=== PATIENT | female | born 1990 | race Two or more races ===

== ENCOUNTER 2019-03-23 01:26 | Emergency (ER) | payer OTHER ==
[2019-03-23] MEDS ORDERED: NS(*) 0.9% 1000 ML BAG 1,000 ML IV ONE (01:31)
--- NOTE | 2019-03-23 01:31 | ER Report ---
History and Physical Time Seen By MD: 01:31 HPI/[facility]IN[facility] CHIEF COMPLAINT: Right flank pain HISTORY OF PRESENT ILLNESS: 28-year-old female with right flank pain since yesterday at noon. She notes sudden onset tonight she presents with nausea and vomiting. She did note some urgency and dysuria. She notes no alisa blood. She denies previous abdominal surgery. She has an IUD in place and has no menstrual periods REVIEW OF SYSTEMS: Respiratory: No cough, no dyspnea. Cardiovascular: No chest pain, no palpitations. Gastrointestinal: As above Musculoskeletal: As above Allergies: Coded Allergies: No Known Drug Allergies (Unverified , 03/23/19) Home Meds Active Scripts Ondansetron Hcl (ZOFRAN) 4 Mg Tablet, 4 MG PO Q6H PRN for NAUSEA/VOMITING, #10 Prov:RAMOS ALCANTAR DO 03/23/19 Ciprofloxacin Hcl 500 Mg Tab (CIPRO 500 MG TAB) 500 Mg Tablet, 500 MG PO BID for infection, #14 Prov:RAMOS ALCANTAR DO 03/23/19 Reviewed Nurses Notes: Yes Old Medical Records Reviewed: Yes Constitutional Vital Sign - Last 24 Hours 03/23/19 03/23/19 03/23/19 03/23/19 01:37 01:41 01:56 02:00 Temp 98.5 Pulse 62 54 60 Resp 24 B/P (MAP) 94/55 Pulse Ox 98 98 97 O2 Delivery Room Air O2 Flow Rate 2.0 03/23/19 03/23/19 03/23/19 03/23/19 02:00 02:11 02:26 02:30 Pulse 50 53 B/P (MAP) 102/66 (78) 101/59 (73) Pulse Ox 97 98 03/23/19 03/23/19 03/23/19 03/23/19 02:41 02:45 03:00 03:01 Pulse 55 74 B/P (MAP) 102/62 (75) Pulse Ox 98 98 O2 Flow Rate 1.0 Intake and Output 03/22/19 03/22/19 03/23/19 15:00 23:00 07:00 Intake Total 1000 ml Balance 1000 ml Physical Exam General Appearance: The patient is alert, has no immediate need for airway protection and no current signs of toxicity. Moderate distress, slightly pale appearing, skin warm and dry, vital signs stable, afebrile, pulse ox normal Eyes: Pupils equal and round no injection. Respiratory: Chest is non tender, lungs are clear to auscultation. Cardiac: regular rate and rhythm Gastrointestinal: Abdomen is soft and non tender, no masses, bowel sounds normal. No CVA tenderness, mild suprapubic tenderness noted Musculoskeletal: Neck: Neck is supple and non tender. Extremities have full range of motion and are non tender. Skin: No rashes or lesions. DIFFERENTIAL DIAGNOSIS: After history and physical exam differential diagnosis was considered for abdominal pain including but not limited to appendicitis, cholecystitis, gastritis and urinary tract infection. Additionally,flank pain including but not limited to musculoskeletal causes, kidney stone, pyelonephritis, shingles, and intra-abdominal causes such as diverticulitis and appendicitis. Medical Decision Making Data Points Result Diagram: 03/23/19 0141 03/23/19 0141 Laboratory Hematology Test 03/23/19 01:33 03/23/19 01:41 Urine Color Yellow Urine Clarity Cloudy Urine pH 6.0 pH (4.8-9.5) Urine Specific [place] 1.016 Urine Protein 30 mg/dL (NEGATIVE) Urine Glucose (UA) Negative mg/dL (NEGATIVE) Urine Ketones Negative mg/dL (NEGATIVE) Urine Blood Moderate (NEGATIVE) Urine Nitrite Positive (NEGATIVE) Urine Bilirubin Negative (NEGATIVE) Urine Urobilinogen Negative mg/dL (0.2-1.9) Urine Leukocyte Esterase Large (NEGATIVE) Urine RBC 90 /HPF (0-2/HPF) Urine WBC 159 /HPF (0-5/HPF) Urine WBC Clumps Few /HPF Urine Squamous Epithelial Cells Many /LPF (</=FEW) Urine Transitional Epithelial Cells Many /LPF (NONE-FEW) Urine Bacteria Few /HPF (NONE-FEW) Urine Mucus Few /HPF (NONE-FEW) Urine HCG, Qualitative Negative (NEGATIVE) Red Blood Count 5.36 M/uL (4.17-5.56) Mean Corpuscular Volume 88.0 fL (80.0-96.0) Mean Corpuscular Hemoglobin 29.7 pg (26.0-33.0) Mean Corpuscular Hemoglobin Concent 33.8 g/dL (32.0-36.0) Red Cell Distribution Width 13.1 % (11.5-14.5) Mean Platelet Volume 8.1 fL (7.2-11.1) Neutrophils (%) (Auto) 83.1 % (39.4-72.5) Lymphocytes (%) (Auto) 10.9 % (17.6-49.6) Monocytes (%) (Auto) 3.6 % (4.1-12.4) Eosinophils (%) (Auto) 1.0 % (0.4-6.7) Basophils (%) (Auto) 1.4 % (0.3-1.4) Nucleated RBC Relative Count (auto) 0.0 /100WBC Neutrophils # (Auto) 16.7 K/uL (2.0-7.4) Lymphocytes # (Auto) 2.2 K/uL (1.3-3.6) Monocytes # (Auto) 0.7 K/uL (0.3-1.0) Eosinophils # (Auto) 0.2 K/uL (0.0-0.5) Basophils # (Auto) 0.3 K/uL (0.0-0.1) Nucleated RBC Absolute Count (auto) 0.01 K/uL Peripheral Blood Smear Yes Y/N Sodium Level 135 mmol/L (137-145) Potassium Level 3.5 mmol/L (3.5-5.0) Chloride Level 103 mmol/L (98-107) Carbon Dioxide Level 25 mmol/L (22-31) Blood Urea Nitrogen 12 mg/dl (7-18) Creatinine 0.80 mg/dl (0.52-1.04) Glomerular Filtration Rate Calc > 60.0 Random Glucose 110 mg/dl (75-110) Calcium Level 9.2 mg/dl (8.4-10.2) Total Bilirubin 0.7 mg/dl (0.2-1.3) Aspartate Amino Transf (AST/SGOT) 19 U/L (0-35) Alanine Aminotransferase (ALT/SGPT) 21 U/L (0-56) Alkaline Phosphatase 72 U/L (0-126) Total Protein 7.2 g/dl (6.3-8.2) Albumin 4.3 g/dl (3.5-5.0) Amylase Level 99 U/L (0-110) Lipase 35 U/L (23-300) Chemistry Test 03/23/19 01:33 03/23/19 01:41 Urine Color Yellow Urine Clarity Cloudy Urine pH 6.0 pH (4.8-9.5) Urine Specific [place] 1.016 Urine Protein 30 mg/dL (NEGATIVE) Urine Glucose (UA) Negative mg/dL (NEGATIVE) Urine Ketones Negative mg/dL (NEGATIVE) Urine Blood Moderate (NEGATIVE) Urine Nitrite Positive (NEGATIVE) Urine Bilirubin Negative (NEGATIVE) Urine Urobilinogen Negative mg/dL (0.2-1.9) Urine Leukocyte Esterase Large (NEGATIVE) Urine RBC 90 /HPF (0-2/HPF) Urine WBC 159 /HPF (0-5/HPF) Urine WBC Clumps Few /HPF Urine Squamous Epithelial Cells Many /LPF (</=FEW) Urine Transitional Epithelial Cells Many /LPF (NONE-FEW) Urine Bacteria Few /HPF (NONE-FEW) Urine Mucus Few /HPF (NONE-FEW) Urine HCG, Qualitative Negative (NEGATIVE) White Blood Count 20.2 k/uL (4.5-11.0) Red Blood Count 5.36 M/uL (4.17-5.56) Hemoglobin 15.9 g/dL (12.0-16.0) Hematocrit 47.1 % (34.0-47.0) Mean Corpuscular Volume 88.0 fL (80.0-96.0) Mean Corpuscular Hemoglobin 29.7 pg (26.0-33.0) Mean Corpuscular Hemoglobin Concent 33.8 g/dL (32.0-36.0) Red Cell Distribution Width 13.1 % (11.5-14.5) Platelet Count 410 K/uL (150-450) Mean Platelet Volume 8.1 fL (7.2-11.1) Neutrophils (%) (Auto) 83.1 % (39.4-72.5) Lymphocytes (%) (Auto) 10.9 % (17.6-49.6) Monocytes (%) (Auto) 3.6 % (4.1-12.4) Eosinophils (%) (Auto) 1.0 % (0.4-6.7) Basophils (%) (Auto) 1.4 % (0.3-1.4) Nucleated RBC Relative Count (auto) 0.0 /100WBC Neutrophils # (Auto) 16.7 K/uL (2.0-7.4) Lymphocytes # (Auto) 2.2 K/uL (1.3-3.6) Monocytes # (Auto) 0.7 K/uL (0.3-1.0) Eosinophils # (Auto) 0.2 K/uL (0.0-0.5) Basophils # (Auto) 0.3 K/uL (0.0-0.1) Nucleated RBC Absolute Count (auto) 0.01 K/uL Peripheral Blood Smear Yes Y/N Glomerular Filtration Rate Calc > 60.0 Calcium Level 9.2 mg/dl (8.4-10.2) Total Bilirubin 0.7 mg/dl (0.2-1.3) Aspartate Amino Transf (AST/SGOT) 19 U/L (0-35) Alanine Aminotransferase (ALT/SGPT) 21 U/L (0-56) Alkaline Phosphatase 72 U/L (0-126) Total Protein 7.2 g/dl (6.3-8.2) Albumin 4.3 g/dl (3.5-5.0) Amylase Level 99 U/L (0-110) Lipase 35 U/L (23-300) Urinalysis Test 03/23/19 01:33 Urine Color Yellow Urine Clarity Cloudy Urine pH 6.0 pH (4.8-9.5) Urine Specific [place] 1.016 Urine Protein 30 mg/dL (NEGATIVE) Urine Glucose (UA) Negative mg/dL (NEGATIVE) Urine Ketones Negative mg/dL (NEGATIVE) Urine Blood Moderate (NEGATIVE) Urine Nitrite Positive (NEGATIVE) Urine Bilirubin Negative (NEGATIVE) Urine Urobilinogen Negative mg/dL (0.2-1.9) Urine Leukocyte Esterase Large (NEGATIVE) Urine RBC 90 /HPF (0-2/HPF) Urine WBC 159 /HPF (0-5/HPF) Urine WBC Clumps Few /HPF Urine Squamous Epithelial Cells Many /LPF (</=FEW) Urine Transitional Epithelial Cells Many /LPF (NONE-FEW) Urine Bacteria Few /HPF (NONE-FEW) Urine Mucus Few /HPF (NONE-FEW) Urine HCG, Qualitative Negative (NEGATIVE) ED Course/Re-evaluation Clinical Indication for ER IV: Hydration, IV Access ED Course Patient was admitted to an examination room. H&P was done. The differential diagnoses was considered. Patient with an elevated white blood cell count. She has right flank pain. Her urinalysis shows gross infection. A urinary cultures ordered. Patient's treated with IV fluid hydration, Zofran, Toradol, Dilaudid. Patient be discharged home on Cipro and Zosyn. She is advised ibuprofen and Tylenol. She is discharged home with 2 Lortabs for temporary pain relief. Decision to Disposition Date: March 23, 2019 Decision to Disposition Time: 02:24 Depart Departure Latest Vital Signs Vital Signs Date Time Temp Pulse Resp B/P (MAP) Pulse Ox O2 Delivery O2 Flow Rate FiO2 03/23/19 03:01 74 98 03/23/19 03:00 102/62 (75) 03/23/19 02:45 1.0 03/23/19 01:37 98.5 24 Room Air Impression: Primary Impression: Urinary tract infection Additional Impression: Pyelonephritis Condition: Improved Disposition: HOME OR SELF-CARE New Scripts Ondansetron Hcl (ZOFRAN) 4 Mg Tablet 4 MG PO Q6H PRN for NAUSEA/VOMITING, #10 Prov: RAMOS ALCANTAR DO 03/23/19 Ciprofloxacin Hcl 500 Mg Tab (CIPRO 500 MG TAB) 500 Mg Tablet 500 MG PO BID for infection, #14 Prov: RAMOS ALCANTAR DO 03/23/19 Patient Instructions: Urinary Tract Infection in Women (ED) Additional Instructions: Use ibuprofen and Tylenol as needed for pain relief Follow-up with primary care if unimproved in 2-3 days Problem Qualifiers Primary Impression: Urinary tract infection Urinary tract infection type: acute cystitis Hematuria presence: without hematuria Qualified Codes: N30.00 - Acute cystitis without hematuria RAMOS ALCANTAR DO March 23, 2019 01:31
[2019-03-23] MEDS ORDERED: HYDROMORPHONE HCL 1 MG/ML SYRINGE IVP ONE (01:45)
[2019-03-23] MEDS ORDERED: ONDANSETRON 4 MG/2 ML VIAL IVP ONE (01:45)
[2019-03-23] MEDS ORDERED: KETOROLAC 30 MG/ML VIAL IVP ONE (01:45)
[2019-03-23 01:53] LABS: PLATELET COUNT, AUTOMATED 410 K/uL (150-450)
[2019-03-23] MEDS ORDERED: CIPROFLOXACIN 500 MG TAB PO ONE (02:15)
[2019-03-23] MEDS ORDERED: cefTRIAXone 1 GM VIAL IVP ONE (02:15)
[2019-03-23] MEDS ORDERED: ONDA4TAB97 PO (02:28)
[2019-03-23] MEDS ORDERED: CIPR-344 PO (02:28)
[2019-03-23 03:00] VITALS: BP 102/62
[2019-03-23] MEDS ORDERED: ACET/HYDROC 5/325MG TH ER ONLY 2 TAB/BOTTLE PO ONE (03:05)
[2019-03-23] MEDS ORDERED: ONDANSETRON 4 MG ODT TH SL ONE (03:05)
== END 2019-03-23 03:16 | disposition home or self-care (01) ==
LOC: ER 01:55
DX: N30.00 Acute cystitis without hematuria (principal); N12 Tubulo-interstitial nephritis, not specified as acute or chronic
CPT/HCPCS: 81001; 81025; 82150; 83690; 85025; 96361; 96374; 96375; 99284; J0696; J1170; J1885; J2405; J7030; S0119; 82040; 82247; 82310; 82374; 82435; 82565; 82947; 84075; 84132; 84155; 84295; 84450; 84460; 84520